=== PATIENT | male | born 1980 | race Asian ===

== ENCOUNTER 2016-11-17 01:30 | Emergency (ER) | payer OTHER ==
[~2016-11-17] VITALS: Ht 165.1 cm; Wt 66.0 kg
[2016-11-17 01:32] VITALS: BP 123/87
[2016-11-17] MEDS ORDERED: LIDOCAINE HCL 1% 20ML VIAL (Pyxis) INJ MC ONE (02:30)
[2016-11-17] MEDS ORDERED: BACITRACIN ZINC OINT UDPKT TOP ONE (02:30)
== END 2016-11-17 04:28 | disposition home or self-care (01) ==
LOC: ER 01:30
DX: S01.81XA Laceration without foreign body of other part of head, initial encounter (principal); X58.XXXA Exposure to other specified factors, initial encounter; Y93.89 Activity, other specified; Y92.89 Other specified places as the place of occurrence of the external cause; Y99.8 Other external cause status; Z90.49 Acquired absence of other specified parts of digestive tract
CPT/HCPCS: 12011; 99283; J3490